=== PATIENT | female | born 1985 | race Caucasian/White ===

== ENCOUNTER 2020-01-12 08:52 | Emergency (ER) | payer SELFPAY ==
[2020-01-12] MEDS ORDERED: Ketorolac Tromethamine 30 MG/ML VIAL ONE (09:19)
== END 2020-01-12 10:30 | disposition home or self-care (01) ==
LOC: ERS 08:52
DX: S39.012A Strain of muscle, fascia and tendon of lower back, initial encounter (principal); R00.0 Tachycardia, unspecified; J45.909 Unspecified asthma, uncomplicated; F41.9 Anxiety disorder, unspecified; Z79.899 Other long term (current) drug therapy; X50.0XXA Overexertion from strenuous movement or load, initial encounter
CPT/HCPCS: 96372; 99283; J1885